=== PATIENT | female | born 1995 | race Caucasian/White ===

== ENCOUNTER 2017-07-21 14:16 | Emergency (ER) | payer OTHER, SELFPAY ==
[2017-07-21 14:17] VITALS: BP 143/88; PULSE 64; RESP 16; TEMP 37.1; O2SAT 100; BMI 24.1
[2017-07-21 14:46] LABS: Absolute Lymphocyte Count 1.69 X10^3/ul (0.83-4.51); Absolute Neutrophil Count 3.5 X10^3/uL (2.0-7.7); Basophil# 0.03 X10^3/uL; Basophil% 0.5 % (0-1); Eosinophils% 1.7 % (0-5); Hematocrit 38.4 % (37-47); Hemoglobin 12.3 g/dl (12.0-15.0); Lymphocyte # 1.69 X10^3/ul (4.0); Lymphocyte % 29.5 % (19-41); Mean Corpuscular Hgb 24.1 pg (27.0-32.0); Mean Corpuscular Volume 75.3 fL (81-99); Mean Platelet Vol. 10.6 fl (6.2-12.0); Monocyte# 0.45 X10^3/uL; Monocyte% 7.9 % (0-10); Neutrophil # 3.45 X10^3/uL (2.7-7.7); Neutrophil % 60.2 % (47-70); Platelet Count 287 K/mm3 (150-450); RBC Distribution Width SD 40.7 fl (35.1-43.9); White Blood Count 5.7 K/mm3 (4.4-11.0)
[2017-07-21 14:48] LABS: POSITIVE COUNT NO; POSITIVE DIFFERENTIAL NO; POSITIVE MORPHOLOGY NO
[2017-07-21 14:53] LABS: Anion Gap 7 (5-15); BUN 13 mg/dL (7-18); BUN/Creat Ratio 14.1 RATIO (10-20); Calcium,Total 9.1 mg/dL (8.5-10.1); Chloride 105 mmol/L (98-107); Creatinine, Serum 0.92 mg/dL (0.55-1.02); EST Glomerular Filtration Rate 82 mL/min (>60); Est Glom Filt Rate - Afr Amer 100 mL/min (>60); Estimated Creatinine Clearance 80.69 ml/min; Glucose 91 mg/dL (74-106); Potassium 4.1 mmol/L (3.5-5.1); Sodium Level 140 mmol/L (136-145)
[2017-07-21 15:01] LABS: Pregnancy, Serum, hCG Quali. NEGATIVE Negative (0-9 Nonpreg)
--- NOTE | 2017-07-21 15:39 | CT_ITS ---
STUDY: CT ABDOMEN AND PELVIS WITHOUT CONTRAST REASON FOR EXAM: Female, 21 years old. Abdominal pain RADIATION DOSAGE (If Supplied By Facility): CTDIvol = ( 6.40 ) mGy, DLP = ( 287.74 ) mGycm TECHNIQUE: Transaxial images were obtained from the dome of the diaphragm to the symphysis pubis without oral contrast, and without intravenous contrast. Sagittal and coronal images were reconstructed. Individualized dose optimization techniques were used for this CT. COMPARISON: None. FINDINGS: Evaluation of the abdominal viscera is limited in the absence of intravenous contrast. The visualized lung bases are clear. The visualized portions of the heart and pericardium are within normal limits. There are no calcified gallstones present. The liver demonstrates an unremarkable unenhanced appearance. The spleen is normal in size. The pancreas demonstrates an unremarkable unenhanced appearance. The adrenal glands are within normal limits. There are no obstructing renal stones. There is no hydronephrosis. Normal visualized stomach. There is no bowel obstruction or inflammation. The appendix is not visualized, but there are no findings to suggest acute appendicitis. The aorta is normal in caliber. There is no abdominal or pelvic free air, free fluid, fluid collection or lymphadenopathy. There are no destructive osseous lesions. CT/Abdomen/Pelvis without Cont IMPRESSION: No acute abdominal or pelvic pathology demonstrated on this noncontrast CT. Electronically Signed: Rick Griffith, at 16:05 EDT Tel , Service support ,
[2017-07-21 15:56] LABS: Bacteria 0 SEEN /hpf (None Seen); Mucous, Urine 0 SEEN /hpf (<or=2+)
[2017-07-21 16:20] VITALS: BP 140/80; PULSE 65; RESP 14; O2SAT 98
[2017-07-21 16:28] LABS: Color, Urine Yellow (Yellow); Glucose, Dipstick Normal (Normal); Ketone-Dipstick Negative (Negative); Leukocyte Esterase-Dipstick 25 /ul (Negative); Nitrite-Dipstick Negative (Negative); Occult Blood-Urine Negative /ul (Negative); Protein-Dipstick Negative (Negative); Urine Bilirubin Dipstick Negative (Negative); Urine Clarity Clear (Clear); Urine Urobilinogen Normal (Normal)
[2017-07-21 16:46] LABS: Red Blood Cells-Urine 0-5 SEEN /hpf (0-5); Squamous Epithelial Cells - UA 0-5 SEEN /hpf (5-10); White Blood Cells 0-5 SEEN /hpf (0-5)
--- NOTE | 2017-07-21 16:50 | ED.VISSUMM ---
- ER Visit Summary Date of Service: 07/21/17 Chief Complaint: [Abdominal pain] History of Present Illness: The patient is a 21 F [presents to the emergency department with abdominal pain that she has had for the last 3 days. Initially the pain was intermittent however since 930 this morning it has been more persistent to the lower abdomen and mostly left lower abdomen. Patient denies any fever. Patient denies any vomiting or diarrhea. Patient denies any blood in her stool or black tarry stool. Patient denies any urinary symptoms. Patient's last menstrual period was 2 weeks ago. Patient states that she thinks she had similar pain about 2 years ago that resolved on its own.] Physical Examination: HEENT-PERRLA, EOMI. Cranial nerves II through XII grossly intact. TMs clear. Mucous membranes moist. No adenopathy. Cardiovascular-regular rate and rhythm without murmur or ectopy Lungs-clear to auscultation, chest wall stable without crepitus or subcu emphysema Abdomen-normoactive bowel sounds, soft. Patient has no tenderness over McBurney's point. Patient has some tenderness over left lower quadrant and left region. There is no rebound, rigidity, or peritoneal signs. Extremities-intact ?4, normal range of motion, normal pulses, atraumatic[] Test Results: [CBC with differential showed a white count of 5.7, hemoglobin 13, hematocrit 38, platelets 287. Chemistries were normal. Urinalysis was normal. HCG was negative. CT scan of the abdomen pelvis without contrast showed nothing acute. 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 Impression: [Abdominal pain-etiology uncertain] This note was generated with [employer] dictation software. It may contain incorrect words, spelling, and punctuation that were not noted in review of the chart prior to signing ED Disposition - Plan for ED Patient: Chief Complaint: Abd Pain Referrals: June Contreras MD [Primary Care Provider] -
--- NOTE | 2017-07-21 16:53 | ED.DCSUM_ITS ---
- ER Visit Summary Date of Service: 07/21/17 Chief Complaint: [Abdominal pain] History of Present Illness: The patient is a 21 F [presents to the emergency department with abdominal pain that she has had for the last 3 days. Initially the pain was intermittent however since 930 this morning it has been more persistent to the lower abdomen and mostly left lower abdomen. Patient denies any fever. Patient denies any vomiting or diarrhea. Patient denies any blood in her stool or black tarry stool. Patient denies any urinary symptoms. Patient's last menstrual period was 2 weeks ago. Patient states that she thinks she had similar pain about 2 years ago that resolved on its own.] Physical Examination: HEENT-PERRLA, EOMI. Cranial nerves II through XII grossly intact. TMs clear. Mucous membranes moist. No adenopathy. Cardiovascular-regular rate and rhythm without murmur or ectopy Lungs-clear to auscultation, chest wall stable without crepitus or subcu emphysema Abdomen-normoactive bowel sounds, soft. Patient has no tenderness over McBurney 's point. Patient has some tenderness over left lower quadrant and left region. There is no rebound, rigidity, or peritoneal signs. Extremities-intact ?4, normal range of motion, normal pulses, atraumatic[] Test Results: [CBC with differential showed a white count of 5.7, hemoglobin 13 , hematocrit 38, platelets 287. Chemistries were normal. Urinalysis was normal. HCG was negative. CT scan of the abdomen pelvis without contrast showed nothing acute. 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 Impression: [Abdominal pain-etiology uncertain] This note was generated with [employer] dictation software. It may contain incorrect words, spelling, and punctuation that were not noted in review of the chart prior to signing ED Disposition - Plan for ED Patient: Chief Complaint: Abd Pain Referrals: June Contreras MD [Primary Care Provider] -
--- NOTE | 2017-07-21 16:53 | ED.DEP ---
ED Disposition - Plan for ED Patient: Chief Complaint: Abd Pain Instructions: ED Abdominal Pain Unkn Cause Referrals: June Contreras MD [Primary Care Provider] - Yumiko Garrett MD [STAFF PHYSICIAN] - 5-7 Days
[2017-07-21 17:09] VITALS: BP 126/75; PULSE 70; RESP 14; O2SAT 99
== END 2017-07-21 17:13 | disposition home or self-care (01) ==
PROVIDERS: Emergency Provider Emergency Medicine; Family Provider Pediatrics; PCP Pediatrics
DX: R10.32 Left lower quadrant pain (principal)
CPT/HCPCS: 74176; 80048; 81001; 84703; 85025; 99284; A4216

== ENCOUNTER 2017-10-06 21:12 | Observation (INO) | payer OTHER, SELFPAY ==
[2017-10-06 21:13] VITALS: BP 116/65; PULSE 68; RESP 16; TEMP 36.7; O2SAT 99; BMI 24.8
--- NOTE | 2017-10-06 21:25 | CT_ITS ---
STUDY: CT ABDOMEN AND PELVIS WITH CONTRAST REASON FOR EXAM: Female, 21 years old. Right lower quadrant pain RADIATION DOSAGE (If Supplied By Facility): CTDIvol = ( 9.42 ) mGy, DLP = ( 422.08 ) mGycm TECHNIQUE: Transaxial images were obtained from the dome of the diaphragm to the symphysis pubis without oral contrast. 100ML ml of Isovue 300 contrast was administered. Sagittal and coronal images were reconstructed. Individualized dose optimization techniques were used for this CT. COMPARISON: July 21, 2017 FINDINGS: The visualized lung bases are unremarkable. The visualized portions of the heart are within normal limits. Normal liver. Normal gallbladder and extrahepatic biliary system. Normal spleen. Normal pancreas. Normal bilateral adrenal glands. Normal right kidney. Normal left kidney. Normal visualized stomach. Normal small intestine. Normal colon. There is diffuse thickening of the av[place]ño of the fluid-filled appendix and stranding in the adjacent fat consistent with acute appendicitis. No evidence for periappendiceal abscess. Normal abdominal aorta. Normal inferior vena cava. Normal retroperitoneum. Incompletely distended thick-walled bladder likely of no significance Moderate amount of fluid in the cul-de-sac possibly due to leaking appendix. Normal abdominal wall. Normal osseous structures. CT/Abdomen/Pelvis WITH Contrast IMPRESSION: Findings consistent with acute appendicitis and moderate amount of fluid in the cul-de-sac possibly due to leaking appendix. No evidence for periappendiceal abscess. Clinical correlation recommended Electronically Signed: Abhijit Dixon MD at 23:45 EDT , Service support ,
--- NOTE | 2017-10-06 21:34 | ED.DCSUM_ITS ---
- ER Visit Summary Date of Service: 10/06/17 Chief Complaint: Abdominal pain History of Present Illness: The patient is a 21 F who started with abdominal pain today. She describes a sharp pain in her right lower quadrant. It does not radiate. Nothing makes it better or worse. She has had nausea with vomiting as well as diarrhea. No urinary symptoms. She denies any fevers. No history of abdominal surgeries in the past. Physical Examination: Vital signs reviewed. HEENT exam unremarkable. Heart is regular rate and rhythm without murmurs. Lungs are clear to auscultation. Abdomen is soft with tenderness at McBurney's point in the right lower quadrant. Positive Rovsing sign. No guarding or rebound. Extremities reveal no edema. Skin exam normal. Neurologic exam normal. Test Results: Laboratory studies are unremarkable except for a white blood cell count of 12.4. The rest of her labs are unremarkable. HCG negative and CT scan with IV and p.o. contrast reveals acute appendicitis with free fluid in the cul-de-sac Emergency Department Course and Treatment: Patient was discussed with Dr. Rivers. Patient will be given Zosyn and will be evaluated by him for surgical removal of her appendix Treatment Plan: [] Disposition: Admit for surgery Impression: Acute appendicitis This note was generated with [employer] dictation software. It may contain incorrect words, spelling, and punctuation that were not noted in review of the chart prior to signing ED Disposition - Plan for ED Patient: Chief Complaint: Abd Pain Referrals: June Contreras MD [Primary Care Provider] -
[2017-10-06] MEDS: Ondansetron 4 MG/2 ML Vial IV (21:40)
[2017-10-06] MEDS: Morphine 4 MG/ML Syringe IV (21:42)
[2017-10-06 22:00] LABS: Absolute Lymphocyte Count 1.16 X10^3/ul (0.83-4.51); Absolute Neutrophil Count 10.6 X10^3/uL (2.0-7.7); Basophil# 0.03 X10^3/uL; Basophil% 0.2 % (0-1); Eosinophil# 0.04 X10^3/uL; Eosinophils% 0.3 % (0-5); Hematocrit 38.3 % (37-47); Hemoglobin 12.2 g/dl (12.0-15.0); Lymphocyte # 1.16 X10^3/ul (4.0); Lymphocyte % 9.3 % (19-41); Mean Corp Hgb Conc 31.9 g/gl (32-36); Mean Corpuscular Hgb 24.1 pg (27.0-32.0); Mean Corpuscular Volume 75.5 fL (81-99); Mean Platelet Vol. 10.9 fl (6.2-12.0); Monocyte# 0.59 X10^3/uL; Monocyte% 4.7 % (0-10); Neutrophil # 10.59 X10^3/uL (2.7-7.7); Neutrophil % 85.3 % (47-70); Platelet Count 259 K/mm3 (150-450); RBC Distribution Width SD 43.2 fl (35.1-43.9); Red Blood Count 5.07 M/mm3 (4.2-5.4); White Blood Count 12.4 K/mm3 (4.4-11.0)
[2017-10-06 22:02] LABS: POSITIVE COUNT NO; POSITIVE DIFFERENTIAL NO; POSITIVE MORPHOLOGY NO
[2017-10-06 22:16] LABS: ALB/GLOB Ratio 0.9 RATIO (0.9-2.4); AST(SGOT) 24 U/L (15-37); Alanine Aminotransfer ALT/SGPT 17 U/L (13-56); Albumin, Serum 3.8 g/dL (3.2-5.0); Alkaline Phosphatase 69 U/L (45-117); Anion Gap 8 (5-15); BUN 12 mg/dL (7-18); BUN/Creat Ratio 13.5 RATIO (10-20); Calcium,Total 9.2 mg/dL (8.5-10.1); Chloride 102 mmol/L (98-107); Creatinine, Serum 0.89 mg/dL (0.55-1.02); EST Glomerular Filtration Rate 85 mL/min (>60); Est Glom Filt Rate - Afr Amer 103 mL/min (>60); Estimated Creatinine Clearance 83.41 ml/min; Globulin 4.4 g/dL (2.2-4.2); Glucose 92 mg/dL (74-106); Potassium 3.9 mmol/L (3.5-5.1); Protein, Total 8.2 g/dL (6.4-8.2); Sodium Level 138 mmol/L (136-145)
[2017-10-06 22:19] LABS: Pregnancy, Serum, hCG Quali. NEGATIVE Negative (0-9 Nonpreg)
[2017-10-06 22:58] LABS: Mucous, Urine 0 SEEN /hpf (<or=2+); Red Blood Cells-Urine 0 SEEN /hpf (0-5)
[2017-10-06 23:13] LABS: Color, Urine Yellow (Yellow); Glucose, Dipstick Normal (Normal); Ketone-Dipstick 15 mg/dl (Negative); Leukocyte Esterase-Dipstick 100 /ul (Negative); Nitrite-Dipstick Negative (Negative); Occult Blood-Urine Negative /ul (Negative); Protein-Dipstick 15 mg/dl (Negative); Urine Bilirubin Dipstick Negative (Negative); Urine Clarity Sl. Cloudy (Clear); Urine Urobilinogen Normal (Normal)
[2017-10-06 23:31] LABS: Amorphous Sediment 2+; Bacteria 1+ /hpf (None Seen); Squamous Epithelial Cells - UA 5-10 SEEN /hpf (5-10); White Blood Cells 5-10 SEEN /hpf (0-5)
[2017-10-07] VITALS (10 sets, daily range): BP systolic 106–137; BP diastolic 57–83; PULSE 57–97; RESP 14–16; TEMP 37–37.9; O2SAT 96–100; BMI 24.8
--- NOTE | 2017-10-07 | APP_PTH ---
PATIENT: CLAUDIA MASCORRO LOC: [facility]3 U#:[id number] AGE/SX: 21/F ROOM: [facility]312 RE10/07/[address]: Dr. Anil Rivers MD : 1995 BED: 1 DIS: 10/07/2017 SPEC #: [id number] RECD: 10/07/17 13:05 STATUS: JU HERNANDEZAwais #: [id number] JOSUE: 10/07/17 00:[address]: Anil Rivers DEPT: SURGICAL PATHOLOGY RECD BY: Dominick Moore ENTERED: 10/07/17 13:06 SP TYPE: APPENDIX OTHR DR: Dr. June Contreras MD Tissues: Appendix, NOS Procedures: Surgery Specimen Level III HEADER OPERATION: Laparoscopic, appendectomy PRE-OP DIAGNOSIS: Acute appendix TISSUE SUBMITTED: Appendix MICROSCOPIC DIAGNOSIS Appendix, appendectomy: Acute appendicitis. Acute serositis. AM:dylan 10/09/17 MICROSCOPIC DESCRIPTION Slides are reviewed. GROSS DESCRIPTION Received is one container labeled with the patient's name and designated appendix. The specimen consists of a vermiform appendix measuring 9 cm in length and 0.8 cm in average diameter. No gross perforations are evident. Serial sections reveal a patent lumen. Tool Maker Apprentice sections are submitted in one cassette. / AM:dylan 10/07/17 TC:2 CPT: 01821
--- NOTE | 2017-10-07 00:27 | PCM.HP.STD ---
Problem List (1) Acute appendicitis Status: Acute Qualifiers: Acute appendicitis type: with localized peritonitis Qualified Code(s): K35.3 - Acute appendicitis with localized peritonitis History of Present Illness Date of Admission: 10/07/17 The patient is a 21 year old F who presented to the emergency room with a 6 hour history of right lower quadrant pain. The patient presented at 9 PM I was contacted at midnight with concerns that the patient had acute appendicitis with possible perforation. A request was made for urgent surgical consultation and surgical intervention. Area patient has not had a similar type illness. She presents with her father. She complains that at approximately 3 PM yesterday afternoon she developed right lower quadrant pain. Became more severe very quickly. She had nausea and some diarrhea. Because of the escalation of the pain they contacted nurse aws solution architect were told to present to the emergency room. Her white blood cell count was noted to be 12.4. Hemoglobin 12.2. Hematocrit 38.3. Platelet count 259,000. 85% neutrophils. BUN is 12 and creatinine 0.89. Urinalysis was noted to have 100 leukocyte esterase 5-10 white blood cells 1+ bacteria. It was said to be slightly cloudy. Serum test was negative. A CT scan had already been obtained prior to my contact. There was felt to be diffuse thickening of the wall of the fluid-filled appendix with stranding in the adjacent fat consistent with acute appendicitis. There is a moderate amount of fluid in the cul-de-sac which the radiologist thought was of concern for possible leaking appendix. 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 Lives: With Family Smoking Status: Never smoker Drugs: None Review of Systems Constitutional: Reports: Anorexia Eyes: Denies: Blurred vision HEENT: Denies: Difficulty Hearing Cardiovascular: Denies: Chest Pain Respiratory: Denies: Cough Gastrointestinal: Reports: Abdominal Pain, Diarrhea, Nausea, Vomiting Musculoskeletal: Denies: Muscle pain Skin: Denies: Dryness Neurological: Denies: Balance problems Psychiatric: Denies: Anxiety Endocrine: Denies: Change in Body Habitus Hematologic/ Lymphatic: Denies: Adenopathy VTE Information - Inpt Only VTE Present on Admission: No Patient Problems: Active and Suspected Problems Acute appendicitis (Acute) - Physical Exam General: Alert, Oriented x3, Cooperative, No apparent distress HEENT: Atraumatic Oral: Moist Mucosa Neck: Supple Lungs: Clear to auscultation Cardiovascular: Regular rate, Regular Rhythm Abdomen: Soft, Bowel Sounds Not Present, - - Focally tender to palpation right lower quadrant with guarding and rebound Extremities: No clubbing Skin: No rashes Musculoskeletal: No Tenderness to Palpation of Joints or Extremities Lymphatic: No Cervical, Supraclavicular, or Inguinal Adenopathy Neurological: Cranial nerves II-XII grossly intact Psych/Mental Status: Normal Affect Vital Signs Temp Pulse Resp BP Pulse Ox 98.6 F 62 16 130/79 H 99 10/07/17 00:01 10/07/17 00:13 10/07/17 00:13 10/07/17 00:13 10/07/17 00:13 Oxygen Delivery Method Room Air Weight: 140 lb 3.424 oz Body Mass Index (BMI) 24.8 Laboratory Tests Past 24 Hrs 10/06/17 10/06/17 10/06/17 21:35 21:35 21:35 WBC 12.4 H RBC 5.07 Hgb 12.2 Hct 38.3 MCV 75.5 L MCH 24.1 L MCHC 31.9 L RDW 16.0 H RDW Differential 43.2 Plt Count 259 MPV 10.9 Immature Gran % (Auto) 0.200 Neut % (Auto) 85.3 H Lymph % (Auto) 9.3 L [place] % (Auto) 4.7 Eos % (Auto) 0.3 Baso % (Auto) 0.2 Absolute Neuts (auto) 10.6 H Absolute Lymphs (auto) 1.16 Total Counted Not Reportable Sodium 138 Potassium 3.9 Chloride 102 Carbon Dioxide 28.0 Anion Gap 8 BUN 12 Creatinine 0.89 Estim Creat Clear Calc 83.41 Est GFR (MDRD) Af Amer 103 Est GFR (MDRD) Non-Af 85 BUN/Creatinine Ratio 13.5 Glucose 92 Calcium 9.2 Total Bilirubin 0.60 AST 24 ALT 17 Alkaline Phosphatase 69 Total Protein 8.2 Albumin 3.8 Globulin 4.4 H Albumin/Globulin Ratio 0.9 Serum , Qual NEGATIVE Urine Color Urine Clarity Urine pH Ur Specific [place] Urine Protein Urine Glucose (UA) Urine Ketones Urine Occult Blood Urine Nitrite Urine Bilirubin Urine Urobilinogen Ur Leukocyte Esterase Urine RBC Urine WBC Ur Squamous Epith Cells Amorphous Sediment Urine Bacteria Urine Mucus 10/06/17 22:30 WBC RBC Hgb Hct MCV MCH MCHC RDW RDW Differential Plt Count MPV Immature Gran % (Auto) Neut % (Auto) Lymph % (Auto) [place] % (Auto) Eos % (Auto) Baso % (Auto) Absolute Neuts (auto) Absolute Lymphs (auto) Total Counted Sodium Potassium Chloride Carbon Dioxide Anion Gap BUN Creatinine Estim Creat Clear Calc Est GFR (MDRD) Af Amer Est GFR (MDRD) Non-Af BUN/Creatinine Ratio Glucose Calcium Total Bilirubin AST ALT Alkaline Phosphatase Total Protein Albumin Globulin Albumin/Globulin Ratio Serum , Qual Urine Color Yellow Urine Clarity Sl. Cloudy Urine pH 7.0 Ur Specific [place] 1.010 Urine Protein 15 H Urine Glucose (UA) Normal Urine Ketones 15 H Urine Occult Blood Negative Urine Nitrite Negative Urine Bilirubin Negative Urine Urobilinogen Normal Ur Leukocyte Esterase 100 H Urine RBC 0 SEEN Urine WBC 5-10 SEEN Ur Squamous Epith Cells 5-10 SEEN Amorphous Sediment 2+ Urine Bacteria 1+ Urine Mucus 0 SEEN Assessment/Plan All Active Problems Acute appendicitis (Acute) Patient's clinical examination very much consistent with advanced acute appendicitis. Guarding and rebound is noted. Leukocytosis. I have reviewed her CT scan demonstrating significant appendiceal inflammation. The pelvic fluid is identified. I have recommended the patient a laparoscopic appendectomy with possible conversion to an open technique if indicated. With her father present we have discussed the technique, benefits, risks, alternatives. No guarantees of success have been offered. With this seemingly rapidly advanced process and additional time since presentation I feel that it is pertinent to proceed on in a timely fashion. She has had an opportunity to ask and have questions answered. We will proceed directly with intervention. Cc: Dr. June Rivers M.D., F.A.C.S.
--- NOTE | 2017-10-07 00:36 | HP.PCM_ITS ---
Problem List (1) Acute appendicitis Status: Acute Qualifiers: Acute appendicitis type: with localized peritonitis Qualified Code(s): K35.3 - Acute appendicitis with localized peritonitis History of Present Illness Date of Admission: 10/07/17 The patient is a 21 year old F who presented to the emergency room with a 6 hour history of right lower quadrant pain. The patient presented at 9 PM I was contacted at midnight with concerns that the patient had acute appendicitis with possible perforation. A request was made for urgent surgical consultation and surgical intervention. Area patient has not had a similar type illness. She presents with her father. She complains that at approximately 3 PM yesterday afternoon she developed right lower quadrant pain. Became more severe very quickly. She had nausea and some diarrhea. Because of the escalation of the pain they contacted nurse continuous improvement analyst were told to present to the emergency room. Her white blood cell count was noted to be 12.4. Hemoglobin 12.2. Hematocrit 38.3. Platelet count 259,000. 85% neutrophils. BUN is 12 and creatinine 0.89. Urinalysis was noted to have 100 leukocyte esterase 5-10 white blood cells 1+ bacteria. It was said to be slightly cloudy. Serum test was negative. A CT scan had already been obtained prior to my contact. There was felt to be diffuse thickening of the wall of the fluid- filled appendix with stranding in the adjacent fat consistent with acute appendicitis. There is a moderate amount of fluid in the cul-de-sac which the radiologist thought was of concern for possible leaking appendix. 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 Lives: With Family Smoking Status: Never smoker Drugs: None Review of Systems Constitutional: Reports: Anorexia Eyes: Denies: Blurred vision HEENT: Denies: Difficulty Hearing Cardiovascular: Denies: Chest Pain Respiratory: Denies: Cough Gastrointestinal: Reports: Abdominal Pain, Diarrhea, Nausea, Vomiting Musculoskeletal: Denies: Muscle pain Skin: Denies: Dryness Neurological: Denies: Balance problems Psychiatric: Denies: Anxiety Endocrine: Denies: Change in Body Habitus Hematologic/ Lymphatic: Denies: Adenopathy VTE Information - Inpt Only VTE Present on Admission: No Patient Problems: Active and Suspected Problems Acute appendicitis (Acute) - Physical Exam General: Alert, Oriented x3, Cooperative, No apparent distress HEENT: Atraumatic Oral: Moist Mucosa Neck: Supple Lungs: Clear to auscultation Cardiovascular: Regular rate, Regular Rhythm Abdomen: Soft, Bowel Sounds Not Present, - - Focally tender to palpation right lower quadrant with guarding and rebound Extremities: No clubbing Skin: No rashes Musculoskeletal: No Tenderness to Palpation of Joints or Extremities Lymphatic: No Cervical, Supraclavicular, or Inguinal Adenopathy Neurological: Cranial nerves II-XII grossly intact Psych/Mental Status: Normal Affect Vital Signs Temp Pulse Resp BP Pulse Ox 98.6 F 62 16 130/79 H 99 10/07/17 00:01 10/07/17 00:13 10/07/17 00:13 10/07/17 00:13 10/07/17 00:13 Oxygen Delivery Method Room Air Weight: 140 lb 3.424 oz Body Mass Index (BMI) 24.8 Laboratory Tests Past 24 Hrs 10/06/17 10/06/17 10/06/17 21:35 21:35 21:35 WBC 12.4 H RBC 5.07 Hgb 12.2 Hct 38.3 MCV 75.5 L MCH 24.1 L MCHC 31.9 L RDW 16.0 H RDW Differential 43.2 Plt Count 259 MPV 10.9 Immature Gran % (Auto) 0.200 Neut % (Auto) 85.3 H Lymph % (Auto) 9.3 L [place] % (Auto) 4.7 Eos % (Auto) 0.3 Baso % (Auto) 0.2 Absolute Neuts (auto) 10.6 H Absolute Lymphs (auto) 1.16 Total Counted Not Reportable Sodium 138 Potassium 3.9 Chloride 102 Carbon Dioxide 28.0 Anion Gap 8 BUN 12 Creatinine 0.89 Estim Creat Clear Calc 83.41 Est GFR (MDRD) Af Amer 103 Est GFR (MDRD) Non-Af 85 BUN/Creatinine Ratio 13.5 Glucose 92 Calcium 9.2 Total Bilirubin 0.60 AST 24 ALT 17 Alkaline Phosphatase 69 Total Protein 8.2 Albumin 3.8 Globulin 4.4 H Albumin/Globulin Ratio 0.9 Serum , Qual NEGATIVE Urine Color Urine Clarity Urine pH Ur Specific [place] Urine Protein Urine Glucose (UA) Urine Ketones Urine Occult Blood Urine Nitrite Urine Bilirubin Urine Urobilinogen Ur Leukocyte Esterase Urine RBC Urine WBC Ur Squamous Epith Cells Amorphous Sediment Urine Bacteria Urine Mucus 10/06/17 22:30 WBC RBC Hgb Hct MCV MCH MCHC RDW RDW Differential Plt Count MPV Immature Gran % (Auto) Neut % (Auto) Lymph % (Auto) [place] % (Auto) Eos % (Auto) Baso % (Auto) Absolute Neuts (auto) Absolute Lymphs (auto) Total Counted Sodium Potassium Chloride Carbon Dioxide Anion Gap BUN Creatinine Estim Creat Clear Calc Est GFR (MDRD) Af Amer Est GFR (MDRD) Non-Af BUN/Creatinine Ratio Glucose Calcium Total Bilirubin AST ALT Alkaline Phosphatase Total Protein Albumin Globulin Albumin/Globulin Ratio Serum , Qual Urine Color Yellow Urine Clarity Sl. Cloudy Urine pH 7.0 Ur Specific [place] 1.010 Urine Protein 15 H Urine Glucose (UA) Normal Urine Ketones 15 H Urine Occult Blood Negative Urine Nitrite Negative Urine Bilirubin Negative Urine Urobilinogen Normal Ur Leukocyte Esterase 100 H Urine RBC 0 SEEN Urine WBC 5-10 SEEN Ur Squamous Epith Cells 5-10 SEEN Amorphous Sediment 2+ Urine Bacteria 1+ Urine Mucus 0 SEEN Assessment/Plan All Active Problems Acute appendicitis (Acute) Patient's clinical examination very much consistent with advanced acute appendicitis. Guarding and rebound is noted. Leukocytosis. I have reviewed her CT scan demonstrating significant appendiceal inflammation. The pelvic fluid is identified. I have recommended the patient a laparoscopic appendectomy with possible conversion to an open technique if indicated. With her father present we have discussed the technique, benefits, risks, alternatives. No guarantees of success have been offered. With this seemingly rapidly advanced process and additional time since presentation I feel that it is pertinent to proceed on in a timely fashion. She has had an opportunity to ask and have questions answered. We will proceed directly with intervention. Cc: Dr. June Rivers M.D., F.A.C.S.
--- NOTE | 2017-10-07 00:36 | PCM.DC.GS ---
<Anil Rivers - Last Filed: 10/07/17 00:36> Discharge Diet: Light diet - advance as tolerated - if you have questions about your diet instructions, please talk to you doctor. Discharge Activity: May Not Drive - for 1 week or while taking narcotic pain medicine. May shower in (days): 1 Lifting Restrictions: 10 pounds Call your doctor if your incision/area has: Continuous Slow Oozing, Sudden Increased Bleeding, Increased Pain/ Swelling, Increased Redness, Foul Smelling Discharge Call your doctor if you observe: Fever of 101 or Higher Suture Line Care: Avoid Pulling/Pushing, Avoid Pinching/Bending Additional Dressing/Incision Instructions:: Change or remove dressing in 4 days. Leave steri-strips in place for 1 week. Allergies/Adverse Reactions: Allergies No Known Allergies Allergy (Verified 10/06/17 21:16) Medications to take at Discharge l-Norgest/E.estradiol-E.estrad [Levono-E Estrad 0.15-0.03-0.01] 1 tab PO DAILY 07/21/17 Primary Care Physician: June Contreras MD [Primary Care Provider] - Test Results: Please Follow Up With: Anil Rivers MD - [phone] When: Call to make an appointment to be seen in about 10 days. <Elizabeth Bright - Last Filed: 10/07/17 11:31> Test Results: Proposed Discharge Date: 10/07/17
--- NOTE | 2017-10-07 02:22 | PCM.OPRPT ---
Problem List (1) Acute appendicitis Status: Acute Qualifiers: Acute appendicitis type: with localized peritonitis Qualified Code(s): K35.3 - Acute appendicitis with localized peritonitis Report of Operation Date of Procedure: 10/07/17 Pre-Operative Diagnosis: Acute appendicitis Post-Operative Diagnosis: Acute appendicitis Surgery/Procedure Performed:: Laparoscopic appendectomy Description of Surgical Findings:: Timeout and informed consent was obtained. 21-year-old female was taken to the operating room. She was placed on the table. 4.5 g of Zosyn therapeutically in the emergency room. She underwent general endotracheal intubation anesthesia. The abdomen was sterilely prepped and draped. 0.5% Marcaine was used as a local anesthetic. Throughout the procedure total 30 cc was used. Local was instilled at the umbilicus. A vertical infraumbilical incision was created. Sharp dissection carried down into the fascia and holding sutures of 0 Vicryl placed. Varies needle inserted. Saline drop test performed. The abdomen was insufflated with CO2 to a pressure of 10 mmHg pressure. Latoya trocar inserted. 10 lap scope inserted. No evidence any trocar injuries. In the low suprapubic area in the low mid abdomen 5 mm trochars were placed. Inspection revealed a large amount of bloody fluid in the pelvis consistent more with menstrual change. The appendix was acutely inflamed but not ruptured. A window was made in the mesoappendix. A standard height 45 m stapler was used to transect the appendix flush with the cecum. There was abundant fibrofatty fullness of the mesoappendix. I needed to incise the peritoneum and gently get the mesoappendix free that I could place a vascular height stapler across that. The appendix was then placed in retrieval bag. The right lower quadrant area was inspected was noted to be hemostatic with staple lines intact. The appendix was exited the umbilicus. The remaining trochars were removed under visualization. The abdomen was allowed to deflate of the CO2. The fascia at the umbilicus approximated with interrupted 0 Vicryl figure 8 suture. Skin edges were approximated with interrupted 4 Monocryl subdermal stitches. Steri-Strips Telfa and OpSite dressings applied. To the surgeon to be correct. Blood loss was minimal. No drains. Specimens includes appendix. She was taken to the recovery area in satisfactory condition without apparent complication. The procedure was completed at 2:25 AM. Anil Rivers M.D., F.A.C.S. Type of Anesthesia:: General Anesthesiologist: Maximo Bowen
[2017-10-07] MEDS: HYDROcodone Bitartrate/Apap 5/325 Tablet PO ×2 (03:28→13:40)
--- NOTE | 2017-10-07 05:43 | PCM.PN.SRG ---
Patient Problems: Active and Suspected Problems Acute appendicitis (Acute) Subjective: No concerns, still tired from procedure - Physical Exam General: Alert, Oriented x3, Cooperative, No apparent distress Lungs: Clear to auscultation Abdomen: Soft, Bowel Sounds Not Present Vital Signs Temp Pulse Resp BP Pulse Ox 98.7 F 61 16 122/71 H 96 10/07/17 05:29 10/07/17 05:29 10/07/17 05:29 10/07/17 05:29 10/07/17 05:29 Oxygen Delivery Method Room Air Weight: 140 lb 3.424 oz Body Mass Index (BMI) 24.8 Intake and Output for Last 24 Hours 10/05/17 10/06/17 10/07/17 23:59 23:59 23:59 Intake Total 700 / 700 Balance 700 / 700 Medical Necessity - Tobacco Use Smoking Status: Never smoker Tobacco Use: Non-smoker Assessment/Plan All Active Problems Acute appendicitis (Acute) Need to mobilize Hopeful discharge later today
[2017-10-07] MEDS: Bupivacaine Mpf 0.5% 30 ML VIAL (11:37)
== END 2017-10-07 13:55 | disposition home or self-care (01) ==
LOC: ED 21:45 → SDC 10-07 01:21 → MS3 10-07 02:25
PROVIDERS: Admitting Provider Surgery; Emergency Provider Emergency Medicine; Family Provider Pediatrics; PCP Pediatrics; Visit Provider Surgery
PROC: 0DTJ4ZZ Resection of Appendix, Percutaneous Endoscopic Approach (ICD-10-PCS; CPT 44970; principal; 2017-10-07 01:00)
DX: K35.3 Acute appendicitis with localized peritonitis (principal)
CPT/HCPCS: 00840; 44970; 74177; 80053; 81001; 84703; 85025; 88304; 96365; 96375; 99218; 99284; J7030; J7120; Q9967; A4216; G0378; J2405